=== PATIENT | female | born 1940 | race Caucasian/White ===

== ENCOUNTER 2024-07-27 17:53 | Emergency (ER) | payer MEDICARE, BC, SELFPAY ==
[2024-07-27 17:55] VITALS: BP 175/104
[2024-07-27 19:58] VITALS: BP 167/91
[2024-07-27 20:00] VITALS: BP 164/84
[2024-07-27 20:09] LABS: % Basophils 0.5 % (0-2); % Eosinophils 3.6 % (0-6); % Immature Granulocytes 0.4 % (0-0.5); % Lymphocytes 19.5 % (20.5-51.1); % Monocytes 7.6 % (1.7-9.3); % Neutrophils 68.4 % (42.2-75.2); Absolute Basophils 0.1 10^3/uL (0-0.2); Absolute Eosinophils 0.3 10^3/uL (0-0.7); Absolute Lymphocytes 1.8 10^3/uL (1.2-3.4); Absolute Monocytes 0.7 10^3/uL (0.1-0.6); Absolute Neutrophils 6.4 10^3/uL (1.4-6.5); Hemoglobin 14.3 g/dL (12.0-16.0); Mean Corp Hgb Conc. 33.3 g/dL (33.0-37.0); Mean Corpuscular Hgb 27.8 pg (27.0-31.0); Mean Corpuscular Volume 83.5 fL (81.0-99.0); Mean Platelet Volume 10.4 fL (7.4-10.4); Nucleated Red Blood Cells % 0 %; Platelet Count 268 10^3/uL (130-400); Red Blood Cell Count 5.15 10^6/uL (4.20-5.40); Red Cell Dist. Width 15.1 % (11.5-14.5); White Blood Cell Count 9.4 10^3/uL (4.8-10.8)
[2024-07-27 20:29] LABS: ALT (SGPT) 10 U/L (0-35); AST (SGOT) 14 U/L (14-36); Alkaline Phosphatase 64 U/L (38-126); Blood Urea Nitrogen 15 mg/dl (7-17); Calcium 9.2 mg/dl (8.4-10.2); Carbon Dioxide 24 mmol/L (22-30); Chloride 106 mmol/L (98-107); Creatine Phosphokinase 55 U/L (30-135); Glucose 114 mg/dl (70-99); Potassium 4.2 mmol/L (3.5-5.1); Sodium 139 mmol/L (135-145); Total Bilirubin 0.4 mg/dl (0.2-1.3); Total Protein 6.6 g/dl (6.3-8.2); eGFR > 60.00
[2024-07-27 21:00] VITALS: BP 145/91
--- NOTE | 2024-07-27 21:22 | ED.GENMED ---
History of Present Illness
General
Chief Complaint: Fall
Source: patient and family
Time Seen by Provider: 07/27/24 20:52
History of Present Illness
History of Present Illness:
This patient is an 84-year-old female who was in [place]. She went outside to trim some penaloza, lost her balance, and fell backwards onto the concrete. She did not hit her head. There was no loss of consciousness. She does not take blood
thinning medication. However, she called out for help but no one was around until approximately 2 hours later. Patient was brought here via EMS. She initially had a posterior occipital headache which is now fully resolved. She denies neck pain,
numbness, tingling, chest pain, dyspnea, abdominal pain, nausea, vomiting, change in vision, change in speech. She denies preceding symptoms such as palpitations, back pain, etc. Patient does note mild comfort of the right thigh ever since the
fall, otherwise no complaints.
Past History
Past History
ED Past Medical History: Asthma, COPD and Other ([facility])
ED Past Surgical History: Appendectomy, Orthopedic (right hip replacement 02/15) and Other ([facility])
Social History
Tobacco: Former smoker
Alcohol: Occasional
Drug: None
Personal:
Living: with family
Employment: Retired
Phy Exam
Physical Exam
Physical Exam:
GENERAL: Alert , in no apparent distress
EYE: pupils equal and reactive, EOMI, no nystagmus, no photophobia
NECK: Supple, no significant adenopathy, no midline tenderness.
ENT: o/p clr, mmm, no santana, no raccoon, no signs of head or facial injury noted but for scalp hematoma.
CARDIAC: Regular rate and rhythm .
LUNGS: Clear breath sounds bilaterally, no acute respiratory distress, no wheezes/rales/rhonchi
ABDOMEN: Soft, without focal tenderness, no r/g, no cvat
NEUROLOGICAL: Alert and oriented, no focal neuro deficits, motor 5 out of 5, sensory intact, cranial nerves II through XII intact, [id number] normal
SKIN: Warm and dry, skin intact.
MUSCULOSKELETAL: No edema, well perfused. There is mild tenderness to palpation over the lateral aspect of the right thigh without associated swelling, bruising, redness, warmth, deformity, or other abnormalities. Range of motion is preserved of
entire lower extremity including hip and knee.
PSYCH: Normal and appropriate interaction.
Course
Orders/Labs/Results
Orders:
Orders
07/27/24 18:00
CT Cervical Spine W/o Iv Contr Urgent
Comment:
Reason For Exam: Trauma
CT Head W/o Iv Contrast Urgent
Comment:
Reason For Exam: Trauma
07/27/24 19:58
Complete Blood Count/With Diff Urgent
Comprehensive Metabolic Panel Urgent
Creatine Phosphokinase Urgent
07/27/24 21:17
Femur, Right 2 View [CR Femur - Right Min 2 Vw] Urgent
Comment:
Reason For Exam: injury
07/27/24 22:53
Acetaminophen [Tylenol] 1,000 mg PO NOW STA
Abnormal Lab Results
07/27/24
19:58
RDW 15.1 H %
(11.5-14.5)
Absolute Monos (auto) 0.7 H 10^3/uL
(0.1-0.6)
Lymphocytes % 19.5 L %
(20.5-51.1)
Glucose 114 H mg/dl
(70-99)
07/27/24 19:58
07/27/24 19:58
Vital Signs
Initial and Last Documented VS:
Initial Vital Signs
Temp Pulse Resp BP Pulse Ox
98.7 F 94 16 175/104 96
07/27/24 17:55 07/27/24 17:55 07/27/24 17:55 07/27/24 17:55 07/27/24 17:55
Last Documented Vital Signs
Temp Pulse Resp BP Pulse Ox
98.7 F 85 18 168/85 96
07/27/24 17:55 07/27/24 19:58 07/27/24 19:58 07/27/24 22:32 07/27/24 22:45
*Pulse Oximetry
SaO2: 96
Oxygen Mode of Delivery: Room air
*Critical Care Note
Total Time (30-74mins, 75-104mins- exclusive of procedures): Not Applicable
Update Note
Update Note:
Patient presents to the Emergency Department with _fall
Number and Complexity of Problems Addressed at the Encounter
� Chronic conditions affecting care:
� Acute Exacerbation and/or Progression of Chronic Illness:
� Differential Diagnosis includes: But not limited to intracranial injury, dehydration, electrolyte disorder, extremity fracture, etc. etc.
Amount and/or Complexity of Data to be Reviewed and Analyzed
� I performed an independent evaluation of and my interpretation is:
EKG:
CT:1. 4.1 cm ACUTE SCALP SOFT TISSUE HEMATOMA posterior to the left parietal bone.
2. SEVERE WHITE MATTER LEUKOARAIOSIS in both cerebral hemispheres which has markedly increased since 03/19/2015.
3. Moderate ventricular dilatation with a ventriculoperitoneal shunt catheter in place (increased ventricular dilatation since 03/19/2015).
4. Mild diffuse cerebral and cerebellar volume loss.
5. Severe chronic paranasal sinus mucosal disease.
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
2. Severe left-sided facet joint arthrosis at C2/C3 and C4/C5 with chronic osseous fusion across the left C4/C5 facet joint.
3. Severe chronic facet joint arthrosis and osseous fusion across the right C3/C4 facet joint.
4. Mild multilevel spinal cord compression and central canal stenosis.
5. SEVERE NEURAL FORAMINAL NARROWING at C2/C3, C3/C4, C4/C5, C5/C6, and C6/C7.
Xrays: Femur read by me NAD
Laboratory Studies: Generally unremarkable
Other:
� Review of other/old records reveals:
� Clinical information was obtained by an independent historian: Daughter and son at her bedside
� Prescriptions/Medications Considered but not given:
� Further testing considered but not performed:
Risk of Complications and/or Morbidity or Mortality of Patient Management
� Social determinants of health affecting care:
� Discussion with other providers (PCP, Hospitalists, Consultants, etc):
� Escalation of care including admission/observation vs risk of discharge considered: 10:32 PM patient ate a meal here has been very eager to go home feels fine with exception of mild right thigh discomfort. X-ray unremarkable.
Will ambulate patient, if she is able to do so without significant difficulty, she will be discharged with close follow-up. Family given copies of CAT scan reports with instructions for follow-up regarding as well.
ED Attending Note
-
Portions of this chart may have been created with voice recognition software.� Occasional wrong word or��sound alike� substitutions may have occurred due to the inherent limitations of voice recognition software.
Discharge Plan
Departure
Patient Disposition: Home (Routine Discharge)
Date of Disposition: 07/27/24
Time of Disposition: 22:33
Patient with high blood pressure during this ER visit?: Yes
Condition: Good
Discharge Problem:
Head injury
Instructions: Head Injury in Adults (DC), BLOOD PRESSURE
Prescriptions:
No Action
calcium carbonate [Calcium 600] 600 MG tablet
600 mg PO DAILY
cyanocobalamin (vitamin B-12) [Vitamin B-12] 500 MCG tablet
500 mcg PO DAILY
ascorbic acid (vitamin C) [Vitamin C] 500 mg Tablet
500 mg PO Q48H
albuterol sulfate 1 PUFF HFA aerosol inhaler
1 puff inhalation R Q6HPRN PRN (Reason: sob)
montelukast 10 MG tablet
10 mg PO QPM
cetirizine [Zyrtec] 10 mg Tablet
10 mg PO HS
cholecalciferol (vitamin D3) [Vitamin D3] 25 mcg (1,000 unit) Tablet
25 mcg PO DAILY
budesonide-formoterol [Symbicort] 160-4.5 mcg/actuation Hfa Aerosol Inhaler
2 inh INHALATION R BID
melatonin 3 mg Tablet
3 mg PO HSPRN PRN (Reason: sleep) 30 Days Qty: 30 0RF
amlodipine 5 mg Tablet
5 mg PO DAILY 30 Days Qty: 30 0RF
Rx Instructions:
first dose 01/14
prednisone 1 mg Tablet
3 mg PO DAILY 30 Days Qty: 90 0RF
levofloxacin 750 mg Tablet
750 mg PO DAILY 4 Days Qty: 4 0RF
Rx Instructions:
first dose on 01/14
cholecalciferol (vitamin D3) 50 mcg (2,000 unit) Tablet
2,000 unit PO DAILY Qty: 14 0RF
Referrals:
UNKNOWN - PT DOES,NOT KNOW [Family Provider]
Activity Restrictions/Additional Instructions:
IF YOU DEVELOP SEVERE HEADACHE, VOMITING, NECK PAIN, DIFFICULTY WALKING, INCREASING OR NEW LEG PAIN, CHEST PAIN, SHORTNESS OF BREATH, ABDOMINAL PAIN, OR OTHER WORRISOME SIGNS, PLEASE RETURN TO THE ER IMMEDIATELY! YOU SHOULD SEE YOUR DOCTOR AND CLOSE
FOLLOW-UP REGARDING YOUR CAT SCAN REPORT.
Interventions
Interventions:
*Risk Screen - Suicide Last Done: 07/27/24 19:47
*General Assessment Last Done: 07/27/24 19:47
*Neglect/Abuse Screening Last Done: 07/27/24 19:47
*ED- Fall Risk Assessment Last Done: 07/27/24 19:47
*ED COVID-19 Vaccine History Last Done: 07/27/24 19:47
*Nursing Disposition Last Done: 07/27/24 22:48
ED-Musculoskeletal Assessment Last Done: 07/27/24 19:47
ED- Neurological Assessment Last Done: 07/27/24 19:47
ED-Skin Assessment Last Done: 07/27/24 19:47
Discharge Date and Time
Discharge Date/Time: 07/27/24 22:54
Print Language: STATELESS
[2024-07-27 22:32] VITALS: BP 168/85
== END 2024-07-27 22:54 ==
LOC: EMR 17:53
PROVIDERS: EMERGENCY PHYSICIAN Emergency Medicine
DX: S09.90XA Unspecified injury of head, initial encounter (principal); W19.XXXA Unspecified fall, initial encounter; J44.89 Other specified chronic obstructive pulmonary disease; Z87.891 Personal history of nicotine dependence
CPT/HCPCS: 99284; 70450; 72125; 73552; 80053; 82550; 85025